=== PATIENT | male | born 1955 | race Caucasian/White ===

== ENCOUNTER → 2020-12-05 | Outpatient (CLI) | payer OTHER | LOC: COL.RAD 11-04 13:00 | DX: F03.90 Unspecified dementia, unspecified severity, without behavioral disturbance, psychotic disturbance, mood disturbance, and anxiety (principal); G20 Parkinson's disease ==

== ENCOUNTER → 2021-01-15 | Outpatient (CLI) | payer OTHER | LOC: COL.CARD 09:14 | DX: F03.90 Unspecified dementia, unspecified severity, without behavioral disturbance, psychotic disturbance, mood disturbance, and anxiety (principal); G20 Parkinson's disease; R41.840 Attention and concentration deficit; R27.0 Ataxia, unspecified ==